=== PATIENT | female | born 1990 | race Caucasian/White ===

== ENCOUNTER 2021-10-22 19:23 | Emergency (ER) | payer OTHER, SELFPAY ==
[2021-10-22 19:35] VITALS: BP 146/88; PULSE 68; RESP 18; TEMP 36.6; O2SAT 97; BMI 24.1
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
== END 2021-10-22 20:15 | disposition home or self-care (01) ==
LOC: ED 20:12
PROVIDERS: Emergency Provider Family Medicine
DX: S16.1XXA Strain of muscle, fascia and tendon at neck level, initial encounter (principal); V43.62XA Car passenger injured in collision with other type car in traffic accident, initial encounter
CPT/HCPCS: 99282; 99283; 99284

== ENCOUNTER 2021-12-13 09:57 | Day surgery (SDC) | payer OTHER, SELFPAY ==
[2021-12-13] VITALS (9 sets, daily range): BP systolic 104–125; BP diastolic 67–91; PULSE 62–86; RESP 16–20; TEMP 36.2–36.8; O2SAT 97–100; BMI 24.2
[2021-12-13 10:39] LABS: Ur HCG Qualitative* Negative (Negative)
[2021-12-13 10:52] LABS: Hemoglobin* 13.7 gm/dL (12.0-16.0)
[2021-12-13] MEDS: LACTATED RINGERS 1000 ML 1,000 ML 100 ML IV (11:00)
[2021-12-13] MEDS: SODIUM CHLORIDE 0.9 % (FLUSH) 10 ML SYRINGE IVF (11:05)
[2021-12-13] MEDS: CEFAZOLIN 2 GM INJ IVP (12:10)
[2021-12-13] MEDS: SILVER NITRATE APPLICATOR 1 EACH STICK..EA. 2 EACH TOPICAL (12:59)
[2021-12-13] MEDS: OXYCODONE 5 MG TABLET PO (13:00)
--- NOTE | 2021-12-13 13:00 | W.ANESCHARGE ---
Anesthesia Charges Start Date/Time Anesthesia Start Date: 12/13/21 Anesthesia Start Time: 12:03 Stop Date/Time Anesthesia Stop Date: 12/13/21 Anesthesia Stop Time: 12:56 Summary Emergency: No
--- NOTE | 2021-12-13 13:05 | W.ANESCHARGE ---
Anesthesia Charges Start Date/Time Anesthesia Start Date: 12/13/21 Anesthesia Start Time: 12:03 Stop Date/Time Anesthesia Stop Date: 12/13/21 Anesthesia Stop Time: 12:56 Summary Emergency: No
[2021-12-13] MEDS: HYDROmorphone 0.5 mg/0.5 ml inj IVP ×2 (13:15→13:54)
[2021-12-13] MEDS: KETOROLAC 15 MG/ML inj IVP (13:40)
--- NOTE | 2021-12-13 13:59 | SUR.PHASEII ---
DR LY HERE TO ASSESS PAIN. SHE LOOKED AT THE SITE, SAID IT LOOKED SHE EXPECTED. APPLIED ICE PACK TO AREA.
--- NOTE | 2021-12-13 15:31 | W.PM.GYNPROC ---
Procedure Note Date Seen: 12/13/21 Operative Note Date Seen: 12/13/21 Date of procedure: 12/13/21 Will [facility] bill your pro fee for this procedure?: Yes Pre-op diagnosis: Recurrent right Bartholin gland cyst Post-op diagnosis: Same Type of Procedure: Right Bartholin gland marsupialization Indications: Recurrent right Bartholin gland cyst, failed Word catheter in the past, multiple I&D in the past Procedure Description: After discussing the risks and benefits of the procedure, the patient signed informed consent.? The patient was brought to the operating room and placed on the operating table in supine position.? Care was taken to pad the patient's pressure points.?? The patient was then given sedation by anesthesia.?Patient was then placed in the dorsal lithotomy position utilizing Yellow Fin type stirrups.? The operative site was then prepped and draped in the usual sterile fashion.? A time-out was then performed. Ancef 2g IV was given. The area of concern was identified as in findings. At the medial aspect of the enlarged gland, at the vestibule, outside of the hymenal ring a 1.5-2cm clem was made with a surgical pen. This area was then infiltrated with local anesthetic 1% lidocaine with epi was injected a total of 9mL utilized. Utilizing a scalpel the skin was opened as well as the cyst wall, this produced immediate drainage of a yellowish serous-sanguinolent fluid. Cultures were obtained. A biopsy of the cyst wall was also obtained utilizing pickups and Metzenbaum scissors. This demonstrated the opening of the cyst cavity. After drainage diminished, utilizing a bulb suction saline was utilized to irrigate the cavity until only clear fluid was seen to come out. Utilizing Vicryl 2-0 multiple interrupted sutures were placed everting the cyst/duct wall to the epithelial surface in a circumferential manner. Silver nitrate was utilized to further secure hemostasis. Hemostasis achieved. Procedure ended. Sponge count complete x2. The patient was then woken and transported to the recovery area in stable condition.The patient tolerated the procedure well. Post op instructions were discussed prior to procedure, as well as return precautions and pain management options. Patient will follow up in clinic in 2 weeks for a post op appointment. Findings: Pelvic: Right Bartholin gland cyst measuring about 4 x 4cm. Otherwise normal external genitalia. Implants: None Anesthesia: MAC Surgeon: Alka Bustillos MD Co-Surgeon: None Estimated blood loss (mL): 10 Specimen: Other Additional Specimen Information: Bartholin gland cyst wall Condition: stable Disposition: same day
== END 2021-12-13 15:22 | disposition home or self-care (01) ==
PROVIDERS: Visit Provider Obstetrics & Gynecology
PROC: (CPT 56740; principal; 2021-12-13 11:00)
DX: N75.0 Cyst of Bartholin's gland (principal)
CPT/HCPCS: 56440; 36415; 81025; 85018; 87186; 87205; 88304; 940; A9270; J0690; J1100; J1170; J1885; J2250; J2405; J2704; J3010; J7120

== ENCOUNTER 2022-07-12 11:51 | Emergency (ER) | payer OTHER, SELFPAY ==
[2022-07-12] VITALS (7 sets, daily range): BP systolic 112–131; BP diastolic 55–80; PULSE 85–102; RESP 18–20; TEMP 36.4–36.5; O2SAT 99–100; BMI 24.0
--- NOTE | 2022-07-12 12:34 | ED.GENADULT ---
HPI - General Adult General Chief complaint: Dizziness/Vertigo Stated complaint: Nausea, dizzy Time Seen by Provider: 07/12/22 11:52 History of Present Illness HPI narrative: 32-year-old woman presenting to the emergency department accompanied by and daughter. Has had numerous episodes of feeling of Mariia Vu since this morning. First episode occurred while exercising. She will be hit by a wave of warmth like a flash, flushing, feeling tingling in her hands feels like she might be about to black out. Kind of like a hot flash must be she says. More intense symptoms lasting about 20 - 30 seconds and spontaneously resolving. She is not actually dizzy. Actually more lightheaded. In particular going up the stairs felt like she might be about pass out. She had been nauseated intermittently but has not vomited. These episodes just continue to happen. Seven or 8 episodes by the time she has arrived here She does endorse a history of depression and anxiety and has had a panic attack in the past but this feels completely different. said he was Googling symptoms and was thinking about temporal lobe epilepsy. There is no personal family history of seizure disorder. Does not have any cardiac disease. Does feel like maybe her heart is beating a little faster in these episodes, maybe fluttering. She has never felt anything like this before. Prior to this was in usual state of health. The young child, 14 months? Is . Does have a history of headaches but again these symptoms are quite atypical today. Related Data Previous Rx's Medication Instructions Recorded levetiracetam 500 mg tablet 500 mg PO BID #60 tabs 07/12/22 Allergies Allergy/AdvReac Type Severity Reaction Status Date / Time No Known Drug Allergies Allergy Verified 07/12/22 12:08 Review of Systems Status of ROS: Reports: 10 or more systems reviewed and unremarkable except as noted in History and below [facility] Medical History Migraine ?G43.909 - Migraine, unspecified, not intractable, without status migrainosus (ICD-10) depression ?F53.0 - depression (ICD-10) Surgical History History of ?Z98.891 - History of uterine scar from previous surgery (ICD-10) Status post primary low transverse section ?Z98.891 - History of uterine scar from previous surgery (ICD-10) Family History Maternal Grandmother Breast cancer Social History Narrative: RN, 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 No alcohol use. No recreational drug use. Smoking Status: Never smoker Do you use any of these nicotine containing products: None How often do you have a drink containing alcohol: monthly or less How many standard drinks containing alcohol do you have on a typical day: 1 or 2 How often do you have six or more drinks on one occasion: Never AUDIT-C Alcohol total score: 1 Non-prescribed substance use: denies use Little interest or pleasure in doing things: nearly every day Feeling down, depressed, or hopeless: nearly every day service: No Exam Narrative: Exam Narrative: Is labored and mildly tachypneic in her breathing. Seems stressed. Easily conversant. Brow is furrowed in apparent discomfort. Nerves 2 through 12 intact. Moving all extremities without difficulty which are well perfused and without edema. Lungs are clear heart with regular rate and rhythm and without murmur or gallop. Abdomen is soft and nontender. Oropharynx is moist. Neck supple without lymphadenopathy. No thyromegaly. She is not tremoring. No there is no nystagmus. Extremity movements are smooth Const: Vital Signs, click to edit/add: Vital Signs - 24 hr 07/12/22 12:00 07/12/22 11:52 07/12/22 12:07 Temperature 97.5 F L Pulse Rate Pulse Rate [Pulse Oximeter] 85 86 95 Respiratory Rate 20 18 18 Blood Pressure [Ri ght Upper Arm] 131/77 112/73 120/55 L Blood Pressure [or thostatic lying Ri ght Arm] Blood Pressure [or thostatic sitting] Blood Pressure [or thostatic standing ] Pulse Oximetry 100 100 100 Oxygen Delivery Me thod Room Air Room Air Room Air 07/12/22 12:23 07/12/22 12:23 07/12/22 12:48 Temperature Pulse Rate Pulse Rate [Pulse Oximeter] 95 Respiratory Rate 18 Blood Pressure [Ri ght Upper Arm] 131/80 Blood Pressure [or thostatic lying Ri ght Arm] 117/73 Blood Pressure [or thostatic sitting] 120/55 L Blood Pressure [or thostatic standing ] 131/80 Pulse Oximetry 100 100 Oxygen Delivery Me thod Room Air 07/12/22 14:06 07/12/22 14:08 Temperature 97.7 F 97.7 F Pulse Rate 102 H Pulse Rate [Pulse Oximeter] Respiratory Rate 20 Blood Pressure [Ri ght Upper Arm] Blood Pressure [or thostatic lying Ri ght Arm] Blood Pressure [or thostatic sitting] Blood Pressure [or thostatic standing ] Pulse Oximetry 99 Oxygen Delivery Me thod Room Air Documenting provider has reviewed patient's vital signs: yes Course Vital Signs Vital signs: Initial Vital Signs Pulse Rate 86 07/12/22 11:52 Pulse Rhythm Regular 07/12/22 11:52 Pulse Strength 3+ Normal 07/12/22 11:52 Respiratory Rate 18 07/12/22 11:52 Respiratory Effort Normal 07/12/22 11:52 Respiratory Depth Normal 07/12/22 11:52 Respiratory Pattern Normal 07/12/22 11:52 Blood Pressure 112/73 07/12/22 11:52 Blood Pressure Mean 86 07/12/22 11:52 Blood Pressure Position Supine 07/12/22 11:52 Pulse Oximetry 100 07/12/22 11:52 Oxygen Delivery Method Room Air 07/12/22 11:52 Vital Signs Pulse Rate 86 07/12/22 11:52 Respiratory Rate 18 07/12/22 11:52 Blood Pressure 112/73 07/12/22 11:52 Pulse Oximetry 100 07/12/22 11:52 Oxygen Delivery Method Room Air 07/12/22 11:52 Temperature 97.7 F 07/12/22 14:08 Pulse Rate 102 H 07/12/22 14:08 Respiratory Rate 20 07/12/22 14:08 Blood Pressure 117/73 07/12/22 12:23 Pulse Oximetry 99 07/12/22 14:08 Oxygen Delivery Method Room Air 07/12/22 14:08 Medical Decision Making MDM Narrative Medical decision making narrative: orthostatics are negative though she does feel lightheaded. In differential includes arrhythmia, anemia though would expect symptoms not to just fluctuate like this, catecholamine surge, other hormone stability, unusual reaction to unspecified infectious process -- viral swab pending, seizure disorder though is fully alert during all of these, other intracerebral anomaly. Pulmonary embolus. Arrhythmia of some sort. Will obtain labs and give IV hydration. Also she 0.5 mg of lorazepam. Reassessment is still uncomfortable appearing and labored in her breathing. She reports that has had 2 or 3 more of these episodes. I do see a PVC on monitor though this seems to be asymptomatic. Essentially normal laboratory evaluation-is reassuring. Normal hemoglobin. Normal cardiac labs. D-dimer is normal. With normal labs I did order a head CT. Head CT thankfully was unremarkable. Reassessment later does show more calm, comfortable. Ultimately 2-1/2 hours without event. Did discuss this case then with Neurology through [facility]. Spoke with Dr. Mike Yu. Is feeling like these might be focal seizures and due to short duration producing less postictal affect. I discussed these findings and suspicions with Ashley. Initiated on Keppra at 500 mg here in the emergency department. Is to continue on this twice daily until seen in follow-up in neurology clinic. We did attempt to make an appointment for her today here but the appointment line was closed. I did contemplate setting up for cardiac cath rn though this does not seem typical for dysrhythmias/arrhythmia in furthermore might be did see here in the emergency department is not associated with reproduction of symptoms. Discussed not driving until further recommendations given at follow-up. Lab Data Lab results reviewed: Yes I reviewed the patient's lab results Labs: Lab Results 07/12/22 07/12/22 07/12/22 Range/Units 12:19 12:56 13:10 WBC 8.52 (4.50-11.00) K/uL RBC 4.68 (4.00-5.20) m/uL Hgb 13.7 (12.0-16.0) gm/dL Hct 41.4 (33.0-51.0) % MCV 89 (80-100) fL MCH 29 (26-34) pg MCHC 33 (32-36) gm/dL RDW Coeff of Juan Alberto 12.0 (11.5-15.5) % Plt Count 243 (140-440) K/uL Neut % (Auto) 81.0 H (42.0-72.0) % Lymph % (Auto) 13.4 L (20-44) % [place] % (Auto) 4.1 (0.0-11.0) % Eos % (Auto) 0.9 (0.0-7.0) % Baso % (Auto) 0.5 (0.0-3.0) % Neut # (Auto) 6.90 (1.7-7.0) K/uL Lymph # (Auto) 1.10 (0.90-2.90) K/uL [place] # (Auto) 0.30 (0.00-0.90) K/UL Eos # (Auto) 0.08 (0.00-0.50) K/uL Baso # (Auto) 0.04 (0.00-0.30) K/uL D-Dimer Quant (PE/DVT) < 0.27 (0.00-0.50) ug/ml VBG pH 7.443 H (7.32-7.43) VBG pCO2 36 L (40-50) mmHG VBG pO2 29.4 (25-47) mmHG VBG HCO3 25 (21-28) mmol/L Sodium 134 L (135-149) mmol/L Potassium 4.1 (3.6-5.1) mmol/L Chloride 105 (96-114) mmol/L Carbon Dioxide 23 (20-32) mmol/L BUN 12 (5-24) mg/dL Creatinine 0.4 L (0.5-1.5) mg/dL Estimated Creat Clear 177.59 Estimated GFR 136 ml/min Glucose 104 (60-115) mg/dL Calcium 8.8 (8.4-10.6) mg/dL Magnesium 1.8 (1.5-2.6) mg/dL Total Bilirubin 0.4 (0.1-1.5) mg/dL Direct Bilirubin 0.1 (0.0-0.5) mg/dL AST 19 (12-35) U/L ALT 16 (4-35) U/L Alkaline Phosphatase 78 (40-150) U/L Troponin I < 0.01 L (0.01-0.04) ng/mL C-Reactive Protein 0.5 (0.5-1.0) mg/dL NT-Pro-B Natriuret Pep 23 pg/mL Total Protein 7.0 (6.0-8.3) g/dL Albumin 4.5 (3.3-5.0) g/dL TSH 2.260 (0.270-4.20) uIU/mL Urine Color (Yellow) Urine Appearance (Clear) Urine pH (5.0-8.5) Ur Specific [place] (1.000-1.030) Urine Protein (Negative) Urine Glucose (UA) (Negative) Urine Ketones (Negative) Urine Blood (Negative) Urine Nitrite (Negative) Urine Bilirubin (Negative) Urine Urobilinogen (0.2-1.0) Ur Leukocyte Esterase (Negative) Urine RBC (0-2) Urine WBC (0-5) Ur Squamous Epith Cells (None-Few) Urine Bacteria (None) Ethyl Alcohol < 0.01 L (0.01-0.03) % SARS-CoV-2 (PCR) Negative SARS-CoV-2 (Negative) Influenza Type A (PCR) Negative PCR FLU A (Negative) Influenza Type B (PCR) Negative PCR FLU B (Negative) POC Troponin I 0.00 L (0.01-0.04) ng/ml 07/12/22 Range/Units 13:34 WBC (4.50-11.00) K/uL RBC (4.00-5.20) m/uL Hgb (12.0-16.0) gm/dL Hct (33.0-51.0) % MCV (80-100) fL MCH (26-34) pg MCHC (32-36) gm/dL RDW Coeff of Juan Alberto (11.5-15.5) % Plt Count (140-440) K/uL Neut % (Auto) (42.0-72.0) % Lymph % (Auto) (20-44) % [place] % (Auto) (0.0-11.0) % Eos % (Auto) (0.0-7.0) % Baso % (Auto) (0.0-3.0) % Neut # (Auto) (1.7-7.0) K/uL Lymph # (Auto) (0.90-2.90) K/uL [place] # (Auto) (0.00-0.90) K/UL Eos # (Auto) (0.00-0.50) K/uL Baso # (Auto) (0.00-0.30) K/uL D-Dimer Quant (PE/DVT) (0.00-0.50) ug/ml VBG pH (7.32-7.43) VBG pCO2 (40-50) mmHG VBG pO2 (25-47) mmHG VBG HCO3 (21-28) mmol/L Sodium (135-149) mmol/L Potassium (3.6-5.1) mmol/L Chloride (96-114) mmol/L Carbon Dioxide (20-32) mmol/L BUN (5-24) mg/dL Creatinine (0.5-1.5) mg/dL Estimated Creat Clear Estimated GFR ml/min Glucose (60-115) mg/dL Calcium (8.4-10.6) mg/dL Magnesium (1.5-2.6) mg/dL Total Bilirubin (0.1-1.5) mg/dL Direct Bilirubin (0.0-0.5) mg/dL AST (12-35) U/L ALT (4-35) U/L Alkaline Phosphatase (40-150) U/L Troponin I (0.01-0.04) ng/mL C-Reactive Protein (0.5-1.0) mg/dL NT-Pro-B Natriuret Pep pg/mL Total Protein (6.0-8.3) g/dL Albumin (3.3-5.0) g/dL TSH (0.270-4.20) uIU/mL Urine Color Yellow (Yellow) Urine Appearance Clear (Clear) Urine pH 7.0 (5.0-8.5) Ur Specific [place] 1.015 (1.000-1.030) Urine Protein Negative (Negative) Urine Glucose (UA) Negative (Negative) Urine Ketones Negative (Negative) Urine Blood Negative (Negative) Urine Nitrite Negative (Negative) Urine Bilirubin Negative (Negative) Urine Urobilinogen 0.2 (0.2-1.0) Ur Leukocyte Esterase Negative (Negative) Urine RBC 0-2 (0-2) Urine WBC 0-2 (0-5) Ur Squamous Epith Cells Few (None-Few) Urine Bacteria None (None) Ethyl Alcohol (0.01-0.03) % SARS-CoV-2 (PCR) (Negative) Influenza Type A (PCR) (Negative) Influenza Type B (PCR) (Negative) POC Troponin I (0.01-0.04) ng/ml ECG Data Attestation: I personally reviewed and interpreted this ECG as follows: (Normal sinus rhythm. Rate of 80. No ischemic changes or evidence of arrhythmia otherwise. No delta wave.) Discharge Plan Discharge Clinical Impression: Focal seizures, Pre-syncope Patient Disposition: Home w/ Parent or Adult Condition: Improved Additional Instructions: Hydrate. Rest today and tomorrow, exerting yourself less than usual. After that I would say can return to baseline. Today I spoke with Dr. Mike Yu from [facility]. I am sorry we were unable to schedule an appointment for you today. The phone number I have for them is [phone]. I would reference this ER visit and Dr. Yu in your phone call. Would hope that you can get an appointment as recommended within 2 weeks. Return for intensifying, worsening symptoms. Activity Level: No Restrictions Discharge Diet: Regular Prescriptions: New levetiracetam 500 mg tablet 500 mg PO BID Qty: 60 2RF Follow Up/Referrals: Cammy Andrews MD [Staff Physician] - Stand Alone Forms: [facility] Info Instructions
[2022-07-12] MEDS: 0.9 % SODIUM CHLORIDE 1000 ml 1,000 ML IV (13:05)
[2022-07-12 13:06] LABS: Basophils Absolute Auto 0.04 K/uL (0.00-0.30); Basophils Percent Auto 0.5 % (0.0-3.0); Eosinophils Absolute Auto 0.08 K/uL (0.00-0.50); Eosinophils Percent Auto 0.9 % (0.0-7.0); Hematocrit 41.4 % (33.0-51.0); Hemoglobin* 13.7 gm/dL (12.0-16.0); Immature Granulocytes Abs Auto 0.01 K/uL (0.00-0.30); Immature Granulocytes Pct Auto 0.1 %; Lymphocytes Percent Auto 13.4 % (20-44); Mean Corpuscular HGB Conc 33 gm/dL (32-36); Mean Corpuscular Hemoglobin 29 pg (26-34); Mean Corpuscular Volume 89 fL (80-100); Monocytes Percent Auto 4.1 % (0.0-11.0); Platelet Count* 243 K/uL (140-440); Red Blood Count 4.68 m/uL (4.00-5.20); White Blood Count* 8.52 K/uL (4.50-11.00)
[2022-07-12] MEDS: LORazepam 2 MG/ML inj 0.5 MG IVP (13:10)
[2022-07-12 13:14] LABS: HCO3 VBG 25 mmol/L (21-28); PCO2 VBG 36 mmHG (40-50); PO2 VBG 29.4 mmHG (25-47); pH VBG 7.443 (7.32-7.43)
[2022-07-12 13:33] LABS: Slide Review Reflex No
[2022-07-12 13:36] LABS: Chloride* 105 mmol/L (96-114); Potassium* 4.1 mmol/L (3.6-5.1); Sodium* 134 mmol/L (135-149)
[2022-07-12 13:37] LABS: Albumin* 4.5 g/dL (3.3-5.0)
[2022-07-12 13:38] LABS: Creatinine* 0.4 mg/dL (0.5-1.5); Est. Creatinine Clearance* 177.59; Estimated Glomerular Filt Rate 136 ml/min
[2022-07-12 13:39] LABS: Carbon Dioxide* 23 mmol/L (20-32)
[2022-07-12 13:40] LABS: Alanine Aminotransferase* 16 U/L (4-35); Alkaline Phosphatase* 78 U/L (40-150); Aspartate Amino Transferase* 19 U/L (12-35); Bilirubin Direct* 0.1 mg/dL (0.0-0.5); Bilirubin Total* 0.4 mg/dL (0.1-1.5); Blood Urea Nitrogen* 12 mg/dL (5-24); Calcium* 8.8 mg/dL (8.4-10.6); Glucose* 104 mg/dL (60-115); Magnesium* 1.8 mg/dL (1.5-2.6)
[2022-07-12 13:40] LABS: Appearance Urine Clear (Clear); Bilirubin Urine Negative (Negative); Blood Urine Negative (Negative); Color Urine Yellow (Yellow); Glucose Urine Negative (Negative); Ketones Urine Negative (Negative); Leukocyte Esterase Urine Negative (Negative); Nitrite Urine Negative (Negative); Protein Urine Negative (Negative); Specific Gravity Urine 1.015 (1.000-1.030); Urobilinogen Urine 0.2 (0.2-1.0)
[2022-07-12 13:42] LABS: C Reactive Protein* 0.5 mg/dL (0.5-1.0)
[2022-07-12 13:43] LABS: PCR FLU A Negative PCR FLU A (Negative); PCR FLU B Negative PCR FLU B (Negative)
[2022-07-12 13:44] LABS: Ethanol* < 0.01 % (0.01-0.03)
[2022-07-12 13:50] LABS: D Dimer Quantitative* < 0.27 ug/ml (0.00-0.50)
[2022-07-12 13:50] LABS: NT Pro B Type NatriureticPept* 23 pg/mL
[2022-07-12 13:53] LABS: RBC Urine 0-2 (0-2); Squamous Epithelial Cell Urine Few (None-Few); WBC Urine 0-2 (0-5)
[2022-07-12 14:02] LABS: Troponin I* < 0.01 ng/mL (0.01-0.04)
[2022-07-12 14:17] LABS: SARS PCR* Negative SARS-CoV-2 (Negative)
--- NOTE | 2022-07-12 14:23 | CRLHL7_ITS ---
For Patients: As a result of the Century Cures Act, medical imaging exams and procedure reports are released immediately into your electronic medical record. You may view this report before your referring provider. If you have questions, please contact your health care provider. INDICATION: Lightheaded. TECHNIQUE: Noncontrast CT images acquired through the brain. COMPARISON: None. FINDINGS: The ventricles and sulci are within normal limits for patient age. No mass effect or midline shift. The aclantara-white differentiation is maintained. No acute intracranial hemorrhage or pathologic extra-axial fluid collection. Minimal atherosclerotic calcifications in the carotid siphons. The globes are symmetric. The calvarium is intact. The visualized paranasal sinuses and mastoid air cells are clear. IMPRESSION: No acute intracranial hemorrhage or mass effect. Please note that all CT scans at this facility use dose modulation, iterative reconstruction, and/or weight-based dosing when appropriate to reduce radiation dose to as low as reasonably achievable. Dictated by Chaitanya Olvera MD @ 07/12/2022 2:59:18 PM (Electronically Signed)
[2022-07-12] MEDS: levETIRAcetam 500 MG TABLET PO (16:59)
== END 2022-07-12 17:17 | disposition home or self-care (01) ==
PROVIDERS: Emergency Provider Family Medicine
DX: R56.9 Unspecified convulsions (principal); R42 Dizziness and giddiness
CPT/HCPCS: 36415; 70450; 80048; 80076; 81001; 82077; 82803; 83735; 83880; 84443; 84484; 85025; 85379; 86140; 87631; 94761; 96374; 99284; A9270; J2060; J7030

== ENCOUNTER 2023-03-31 13:56 | Outpatient (CLI) | payer OTHER, SELFPAY | END 2023-03-31 13:57 | disposition home or self-care (01) | LOC: NFLDREF 13:57 | PROVIDERS: PCP Family Medicine; Visit Provider Obstetrics & Gynecology | DX: Z32.01 Encounter for pregnancy test, result positive (principal) | CPT/HCPCS: 84702 ==

== ENCOUNTER 2023-04-04 10:59 | Outpatient (CLI) | payer OTHER, SELFPAY ==
--- NOTE | 2023-04-04 11:15 | CRLHL7_ITS ---
For Patients: As a result of the Century Cures Act, medical imaging exams and procedure reports are released immediately into your electronic medical record. You may view this report before your referring provider. If you have questions, please contact your health care provider. INDICATION: 32 year-old female. First trimester scan, establish dates. COMPARISON: None. TECHNIQUE: Real-time alcantara-scale imaging of the pelvis was performed. FINDINGS: Sonographic imaging demonstrates a single living intrauterine gestation. The embryo demonstrates a regular cardiac rate measuring 157 beats per minute. The embryo`s crown-rump length measurement of 1.47 cm corresponds to a gestational age of 7 weeks 6 days with a sonographic due date of November 15, 2023.. There is a normal-appearing yolk sac measuring 3.3 mm. There are no gross abnormalities noted within the embryo at this early state of development. The placenta has not yet developed. The gestational sac has a normal appearance. Curvilinear perigestational/subchorionic hemorrhage inferior to the gestational sac measuring 11 x 10 x 7 mm. The amount of fluid within the sac appears appropriate for gestational age. The cervix is closed. The myometrium appears normal. The ovaries are of normal size. The right ovary measures 3.2 x 1.8 x 2.7 cm. The left ovary measures 4.6 x 2.3 x 3.2 cm. The left ovary contains a corpus luteum cyst of measuring 2.2 x 2.2 x 2.8 cm. Minimal free fluid in the cul-de-sac likely physiologic. There are no suspicious fluid collections noted in the cul-de-sac. IMPRESSION: Normal first trimester OB ultrasound exam. Gestational age calculated at 7 weeks 6 days with a sonographic due date of November 15, 2023. Small amount of subchorionic hemorrhage. Dictated by Isaac Tong MD @ 04/07/2023 8:19:42 AM (Electronically Signed)
== END 2023-04-04 11:00 | disposition home or self-care (01) ==
LOC: US 11:01
PROVIDERS: PCP Family Medicine; Visit Provider Registered Nurse
DX: Z34.91 Encounter for supervision of normal pregnancy, unspecified, first trimester (principal); O20.9 Hemorrhage in early pregnancy, unspecified; Z3A.01 Less than 8 weeks gestation of pregnancy
CPT/HCPCS: 76817

== ENCOUNTER 2023-04-04 12:16 | Outpatient (CLI) | payer OTHER, SELFPAY ==
[2023-04-04 18:53] LABS: Chlamydia DNA Amplified* NOT DETECTED (No Detected); GC DNA Amplified* NOT DETECTED (No Detected)
== END 2023-04-04 12:17 | disposition home or self-care (01) ==
PROVIDERS: PCP Family Medicine; Visit Provider Registered Nurse
DX: Z34.91 Encounter for supervision of normal pregnancy, unspecified, first trimester (principal); Z3A.08 8 weeks gestation of pregnancy
CPT/HCPCS: 86592; 86703; 86704; 86706; 86762; 86787; 86803; 86850; 86900; 86901; 87086; 87340; 87491; 87591

== ENCOUNTER 2023-04-09 16:46 | Outpatient (REF) | payer OTHER, SELFPAY ==
[2023-04-12 14:08] LABS: Keppra (Levetiracetam) 10 ug/mL (10-40)
== END 2023-04-09 16:47 | disposition home or self-care (01) ==
LOC: NPINS 16:46
PROVIDERS: PCP Family Medicine; Visit Provider Psychiatry & Neurology Neurology
DX: R56.9 Unspecified convulsions (principal)
CPT/HCPCS: 80177

== ENCOUNTER 2023-06-27 07:59 | Outpatient (CLI) | payer OTHER, SELFPAY ==
--- NOTE | 2023-06-27 08:15 | US_ITS ---
Patient: ELMA PAGE Facility:?[facility] Patient ID:?[id number] Site Patient ID:?[id number]. Site :?1990 Study:?US-OB Pelvis OB > 14wks-06/27/2023 9:46:03 AM Ordering Physician:?Alka Bustillos Final Report: HISTORY: anatomic survey. COMPARISON: Early OB ultrasound from 04/04/2023 TECHNIQUE: Ultrasound examination of the is performed with transabdominal technique. FINDINGS: A single intrauterine gestation is seen in variable presentation with regular cardiac activity at 149 beats per minute. The placenta is anterior and is free of the cervical os. The placental grade is 0 and the amniotic fluid volume is normal. Single deepest vertical pocket: Normal at 5.2 cm. The cervix is normal in length at 4.0 centimeters. BPD: 4.8 cm 20 weeks 3 days HC: 18.1 cm 20 weeks 4 days AC: 14.6 cm 20 weeks 0 days FL: 3.2 cm 19 weeks 6 days The estimated age by ultrasound is 20 weeks 1 day, with an estimated date of delivery of 11/13/2023. This correlates well with the clinical age of 19 weeks 3 days and the previous ultrasound. The ultrasound ratios are normal. The estimated weight is 320 grams which is at the 77th percentile based on the clinical dates. The anatomic survey demonstrates normal appearing intracranial structures with a normal septum pellucidum and normal cerebellum. The nuchal thickness is normal at 3 mm, and the lateral ventricle is normal in diameter at 5 mm. The upper lip, 4 chamber heart, left and right ventricular outflow tracts, diaphragm, stomach, cord insertion site, 3-vessel cord, kidneys, bladder and spine are normal in appearance. IMPRESSION: 1. Single intrauterine gestation in variable presentation with regular cardiac activity. 2. Estimated gestational age is 19 weeks 3 days. 3. Estimated weight is 320 grams which is at the 77th percentile based on the clinical dates. 4. There has been appropriate interval growth. Dictated by Nic Mckeon MD @ 06/29/2023 11:09:41 AM Signed by:?Nic Mckeon MD @06/29/2023 11:09:41 AM (Electronic Signature)
== END 2023-06-27 08:00 | disposition home or self-care (01) ==
LOC: US 07:59
PROVIDERS: PCP Family Medicine; Visit Provider Obstetrics & Gynecology
DX: Z34.92 Encounter for supervision of normal pregnancy, unspecified, second trimester (principal); Z3A.20 20 weeks gestation of pregnancy
CPT/HCPCS: 76805

== ENCOUNTER 2023-06-27 09:50 | Outpatient (CLI) | payer OTHER, SELFPAY | END 2023-06-27 09:51 | disposition home or self-care (01) | LOC: NFLDREF 09:51 | PROVIDERS: PCP Family Medicine; Visit Provider Obstetrics & Gynecology | DX: G40.209 Localization-related (focal) (partial) symptomatic epilepsy and epileptic syndromes with complex partial seizures, not intractable, without status epilepticus (principal); Z79.899 Other long term (current) drug therapy | CPT/HCPCS: 80177 ==

== ENCOUNTER 2023-08-25 09:10 | Outpatient (CLI) | payer OTHER, SELFPAY ==
--- OUTSIDE RECORDS SUMMARY | 2023-09-11 11:06 | XMS_ITS | Clinical Summary ---
Author Organization [facility] Address [address] [place] [address] Care Team Providers Care Tank Farm Gauger Name Role Phone Gertrude Kang M.D. Primary Care Provider [phone] Source Comments Patient records contain information from all sites at [facility]. For routine questions regarding patient records, call [phone] during business hours, M-F 8:00 AM - 5:00 PM Central Time. Record requests for emergency care only can be directed to [phone] at any time.[facility] Allergies No known active allergies Medications Medication Sig Dispensed Refills Start Date End Date Status ncevmxq-Fj-efie-FA 27 mg iron- 1 mg tablet Take 1 tablet by mouth daily. Active levETIRAcetam (KEPPRA) 500 mg tablet Take 500 mg by mouth 2 (two) times a day. Active sertraline (ZOLOFT) 100 mg tablet Take 150 mg by mouth daily. Active folic acid 1 mg tablet Take 4 mg by mouth daily. Active Active Problems Problem Noted Date Diagnosed Date Seizure Disorder 05/13/2023 Maternal Care For Low Transv erse Scar From Previous Delivery 05/13/2023 Depression/Kourtney/Bipolar NOS 05/11/2010 Overview: UNSPECIFIED EPISODIC MOOD DISORDER Estimated Date of Delivery Comme nts Yes 11/18/2023 Based on last me nstrual period of 02/11/2023 Immunizations Name Administration Dates Next Due 4vHPV (discontinued) 02/03/2014 HepA Pediatric/Adolescent 11/11/2008 IPV 11/11/2008,10/30/2007 Influenza, Unspecified 02/03/2014 MCV4 (Menactra)(Discontinued) 11/11/2008 MMR 10/30/2007,09/01/2006 Td (Adult), adsorbed 09/01/2006 Tdap 03/20/2021 influenza vaccine quad (FLUZ ONE/FLUARIX) (6 months and older)(PF) 03/20/2021,01/19/2020,01/20/2019 Family History Medical History Relation Name Comments Anxiety disorder Brother 1 Depression Brother 1 Anxiety disorder Brother 2 Depression Brother 2 Depression Father No Known Problems Mother Heart disease Paternal Grandfather Anxiety disorder Sister 1 Depression Sister 1 Anxiety disorder Sister 2 Relation Name Status Comments Brother 1 Alive Brother 2 Alive Brother 3 Alive Brother 4 Alive Daughter Alive Father Alive Maternal Grandfather Maternal Grandmother Alive Mother Alive Paternal Grandfather Paternal Grandmother Sister 1 Alive Sister 2 Alive Sister 3 Alive Social History Tobacco Use Types Packs/Day Years Used Date Smoking Tobacco: Never Smokeless Tobacco: Never Tobacco Cessation:Counseling Given: Not Answered Alcohol Use Standard Drinks/Week Comments Not Currently 0 (1 standard drink = 0.6 oz pur e alcohol) 2 a week [facility] [employer] Answer Date Recorded In the past 12 months has th e [employer], gas, oil, or water [employer] threatened to shut off services in your home? No 05/09/2023 Exercise Vital Sign Answer Date Recorde d On average, how many days pe r week do you engage in moderate to strenuous exercise (like a brisk walk)? 3 days 05/09/2023 On average, how many minutes do you engage in exercise at this level? 30 min 05/09/2023 Hunger Vital Sign Answer Date Recorded Within the past 12 months, y ou worried that your food would run out before you got the money to buy more. Never true 05/09/19 24 Within the past 12 months, t he food you bought just didn't last and you didn't have money to get more. Never true 05/09/2023 PRAPARE - Transportation Answer Date Re corded In the past 12 months, has l ack of transportation kept you from medical appointments or from getting medications? No 04/24 In the past 12 months, has l ack of transportation kept you from meetings, work, or from getting things needed for daily living? No 05/09/2023 Nutrition Answer Date Recorded Nutrition: EVOO Fat Source Unknown 05/09 On average, how many serving s of fruits and vegetables do you eat per day (serving size is equal to 1 cup or approximately the size of a tennis ball)? 0-2 05/09/2023 Dental Answer Date Recorded Dental: Regular Dentist Yes 05/09/19 Employment Answer Date Recorded Employment status Unemployed/not in e paid workforce and NOT seeking employment 05/09/2023 Housing Stability Answer Date Recorded What is your living situation today? I have a [facility] place to live 05/09/2023 Education Answer Date Recorded What is the highest level of school you have completed or the highest degree you have received? Bachelor's degree (e.g., BA, AB, BS) 04/11/2023 Estimated Date of Delivery Comme nts Yes 11/18/2023 Based on last me nstrual period of 02/11/2023 Sex and Gender Information Value Date Recorded Sex Assigned at Female 05/09/2023 8:51 PM PSYCHOLOGIST INDUSTRIAL ORGANIZATIONAL Gender Identity Female 05/09/2023 8:51 PM PSYCHOLOGIST INDUSTRIAL ORGANIZATIONAL Sexual Orientation Straight 05/09/2023 8: 51 PM PSYCHOLOGIST INDUSTRIAL ORGANIZATIONAL Last Filed Vital Signs Vital Sign Reading Time Taken Comments Blood Pressure 113/65 05/12/2023 2:23 PM PSYCHOLOGIST INDUSTRIAL ORGANIZATIONAL Pulse 75 05/12/2023 2:23 PM PSYCHOLOGIST INDUSTRIAL ORGANIZATIONAL Temperature 36.7 ??C (98.1 ??F) 05/12/2023 2:23 PM CS T Respiratory Rate 18 10/22/2016 1:46 PM CDT Oxygen Saturation 98% 05/12/2023 2:23 PM PSYCHOLOGIST INDUSTRIAL ORGANIZATIONAL Inhaled Oxygen Concentration - - Weight 65.6 kg (144 lb 10 oz) 05/12/2023 2:23 PM PSYCHOLOGIST INDUSTRIAL ORGANIZATIONAL Height 164 cm (5' 4.57) 11/21/2016 9:20 AM CDT Body Mass Index 24.39 11/21/2016 9:20 AM CDT Plan of Treatment Health Maintenance Due Date Last Done Comments HIV Screening 1990 Hepatitis C Screening 1990 Hepatitis B Vaccines (1 of 3 - 19+ 3-dose series) 06/21/2011 HPV Vaccines (2 - 3-dose series) 03/03/2014 02/03/2014 Cervical Cancer Screening 10/22/2019 10/21/2016, COVID-19 Vaccine (2022-24 season) 2022 Depression Screening (Annual PHQ-2) 03/24/2023 DTaP,Tdap,and Td Vaccines (3 - Td or Tdap) 03/20/2031 03/20/2021, 09/01/2006 Influenza Vaccine Completed 04/04/2023, , 03/20/2021, Additional history exists Pneumococcal vaccine (0-64 years) Aged Out No longer eligible based on patient's age to complete this topic RSV vaccine - (32-36 weeks) or 60+ years (No Doses Required) Completed Procedures Procedure Name Priority Date/Time Associated Diagnosis Comments PATHOLOGY FERN GATHERER CYTOLOGY Routine 10/21/2016 12:00 AM CDT from Last 3 Months or Most Recently Relevant to Health Maintenance Results * Pathology FERN GATHERER Cytology (10/21/2016 12:00 AM CDT) 10/21/2016 Narrative [facility] - 10/25/2016 11:59 AM CDT [facility] [place] [address] [facility] [address] [place] [address] ??[phone] Patient Name: ELMA TAYLOR Collected: 10/21/2016 Address: City/State/Zip: [address] [place] [address] ??[id number] Received: Reported: 10/22/2016 10/25/2016 Soc. Sec. #: ?/Age/Sex 1990 (Age: 26) ??F Physician(s): JAVON KANG MD Copy To: ? [facility] ??[id number] [facility] ??[id number] CYTOPATHOLOGY FERN GATHERER REPORT FINAL CYTOLOGIC DIAGNOSIS Pap Smear VCE - ThinPrep: NEGATIVE FOR INTRAEPITHELIAL LESION OR MALIGNANCY REACTIVE/REPARATIVE CHANGES. ENDOCERVICAL CELLS/COMPONENT PRESENT. SATISFACTORY SPECIMEN FOR EVALUATION. ??This specimen required a physician interpretation under CLIA 1987 ?? Electronically Signed Out By [facility]/10/25/2016 RENUKA CHOUDHARY M.D. JESSICA CARDENAS([facility]) The Pap test is a screening procedure and, as such, is subject to both false positive and false negative results as evidenced by published data. ??It is not a diagnostic test and results should be interpreted in the context of the patient's history and other clinical findings. ??Obtaining periodic Pap tests may help to minimize the consequences of any false negatives that may occur. SPECIMEN(S) RECEIVED: Pap Smear VCE - ThinPrep CLINICAL HISTORY: Date of Last Menstrual Period: 10/18/2016 Hormonal History: No hormonal therapy Other Clinical Conditions: CT/NG TESTING ORDERED Gertrude Kang M.D. LAB PAP COPATH OR DERABLES [facility] LAB from Last 3 Months or Most Recently Relevant to Health Maintenance Care Teams Tank Farm Gauger Relationship Specialty Start Date End Date Gertrude Kang M.D. [address] [place] [phone] PCP - General 09/20/16
--- OUTSIDE RECORDS SUMMARY | 2023-09-11 11:06 | XMS_ITS | Referral Summary ---
Author Organization [facility] Address [address] [place] [address] Care Team Providers Care Heat Pump Installer Name Role Phone Gertrude Kang M.D. Primary Care Provider [phone] Source Comments Patient records contain information from all sites at [facility]. For routine questions regarding patient records, call [phone] during business hours, M-F 8:00 AM - 5:00 PM Central Time. Record requests for emergency care only can be directed to [phone] at any time.[facility] Allergies No known active allergies Medications Medication Sig Dispensed Refills Start Date End Date Status qoncdne-Tl-kloz-FA 27 mg iron- 1 mg tablet Take [...] (FLUZ ONE/FLUARIX) (6 months and older)(PF) 03/20/2021,01/19/2020,01/20/2019 Social History Tobacco Use Types Packs/Day Years Used Date Smoking Tobacco: Never Smokeless Tobacco: Never Tobacco Cessation:Counseling Given: Not Answered Alcohol Use Standard Drinks/Week Comments Not Currently 0 (1 standard drink = 0.6 oz pur e alcohol) 2 a week [facility] [employer] Answer Date Recorded In the past 12 months has th e [employer], gas, oil, or water [employer] threatened to shut off services in your [...] Date Recorded Dental: Regular Dentist Yes 05/09/19 24 Employment Answer Date Recorded Employment status Unemployed/not in th e paid workforce and NOT seeking employment 05/09/2023 Housing Stability Answer Date Recorded What is your living situation today? I have a [facility] place to live 05/09/2023 Education Answer Date Recorded What is the highest level of school you have completed or the highest degree you have received? Bachelor's degree (e.g., BA, AB, BS) 04/11/2023 Estimated Date of Delivery Comme nts Yes 11/18/2023 Based on last me nstrual period of 02/11/2023 Sex and Gender Information Value Date Recorded Sex Assigned at Female 05/09/2023 8:51 PM VOCATIONAL AIDE Gender Identity Female 05/09/2023 8:51 PM VOCATIONAL AIDE Sexual Orientation Straight 05/09/2023 8: 51 PM VOCATIONAL AIDE Last Filed Vital Signs Vital Sign Reading Time Taken Comments Blood Pressure 113/65 05/12/2023 2:23 PM VOCATIONAL AIDE Pulse 75 05/12/2023 2:23 PM VOCATIONAL AIDE Temperature 36.7 ??C (98.1 ??F) 05/12/2023 2:23 PM CS T Respiratory Rate 18 10/22/2016 1:46 PM CDT Oxygen Saturation 98% 05/12/2023 2:23 PM VOCATIONAL AIDE Inhaled Oxygen Concentration - - Weight 65.6 kg (144 lb 10 oz) 05/12/2023 2:23 PM VOCATIONAL AIDE Height 164 cm (5' 4.57) 11/21/2016 9:20 AM CDT Body Mass Index 24.39 11/21/2016 9:20 AM CDT Plan of Treatment Not on file Procedures Procedure Name Priority Date/Time Associated Diagnosis Comments PATHOLOGY BACK HOE MACHINE OPERATOR CYTOLOGY Routine 10/21/2016 12:00 AM CDT from Last 3 Months or Most Recently Relevant to Health Maintenance Results * Pathology BACK HOE MACHINE OPERATOR Cytology (10/21/2016 12:00 AM CDT) 10/21/2016 Narrative [facility] - 10/25/2016 11:[address] [facility] in [address] [place], [place] ??[phone] Patient Name: ELMA TAYLORSE Collected: 10/21/2016 Address: City/State/Zip: [address] [place], [place] ??[id number] Received: Reported: 10/22/2016 10/25/2016 Soc. Sec. #: ?/Age/Sex 1990 (Age: 26) ??F Physician(s): JAVON KANG MD Copy To: ? [facility] ??[id number] [address] [facility], ??[place] ??[address] CYTOPATHOLOGY BACK HOE MACHINE OPERATOR REPORT FINAL CYTOLOGIC DIAGNOSIS Pap Smear VCE - ThinPrep: NEGATIVE FOR INTRAEPITHELIAL LESION OR MALIGNANCY REACTIVE/REPARATIVE CHANGES. ENDOCERVICAL CELLS/COMPONENT PRESENT. SATISFACTORY SPECIMEN FOR EVALUATION. ??This specimen required a physician interpretation under CLIA 1987 ?? Electronically Signed Out By [facility]/10/25/2016 RENUKA CHOUDHARY M.D. JESSICA CARDENAS([facility]) The Pap test is a screening procedure [...] Kang M.D. LAB PAP COPATH OR DERABLES Performing Organization Address City/State/[facility] Co de Phone Number [facility] from Last 3 Months or Most Recently Relevant to Health Maintenance Care Teams Heat Pump Installer Relationship Specialty Start Date End Date Gertrude Kang M.D. [address] [place] [phone] PCP - General 09/20/16
--- OUTSIDE RECORDS SUMMARY | 2023-09-11 11:06 | XMS_ITS ---
Author Organization [facility] Address [address] [place] [address] Care Team Providers Care Drawing Box Tender Name Role Phone Unavailable Unavailable Unavailable Surgery Details Not on file Complications Check Surgery Details section. Procedure Estimated Blood Loss Check Surgery Details section. Procedure Findings Check Surgery Details section. Procedure Specimens Taken Check Surgery Details section.
== END 2023-08-25 09:11 | disposition home or self-care (01) ==
LOC: NFLDREF 09-11 11:05
PROVIDERS: PCP Family Medicine; Referring Provider Family Medicine; Visit Provider Advanced Practice Midwife
DX: Z34.83 Encounter for supervision of other normal pregnancy, third trimester (principal)
CPT/HCPCS: 86592

== ENCOUNTER 2023-08-25 09:11 | Outpatient (CLI) | payer OTHER, SELFPAY ==
--- NOTE | 2023-08-25 09:15 | CRLHL7_ITS ---
For Patients: As a result of the Century Cures Act, medical imaging exams and procedure reports are released immediately into your electronic medical record. You may view this report before your referring provider. If you have questions, please contact your health care provider. INDICATION: Third trimester scan, evaluate growth. COMPARISON: 06/27/2023 TECHNIQUE: Real time alcantara scale imaging of the fetus was performed. FINDINGS: Sonographic imaging demonstrates a single living intrauterine gestation. Fetus demonstrates a regular cardiac rate of 149 beats per minute. Fetus has a vertex position. The placenta lies anteriorly without evidence of placenta previa. Amniotic fluid volume appears normal and there is a single deepest vertical pocket: 6.8 cm. The estimated weight is 1324gm which lies at the 82nd %. On the prior OB ultrasound exam dated 06/27/2023 the estimated weight was at the 77th%. BPD and HC greater than 97th percentile. AC 79th percentile. FL 34th percentile. The HC/AC ratio measures 1.16 range (0.98-1.19). IMPRESSION: Sonographic gestational age 29 weeks 6 days and a sonographic due date of 11/04/2023. Sonographic age 2 weeks ahead of the clinical age. Estimated weight 82nd percentile. Abdominal circumference 79th percentile. Dictated by Erwin Lamas MD @ 08/25/2023 10:16:26 AM (Electronically Signed)
== END 2023-08-25 09:12 | disposition home or self-care (01) ==
PROVIDERS: PCP Family Medicine; Visit Provider Obstetrics & Gynecology
DX: Z34.93 Encounter for supervision of normal pregnancy, unspecified, third trimester (principal); Z3A.29 29 weeks gestation of pregnancy
CPT/HCPCS: 76816

== ENCOUNTER 2023-10-21 11:56 | Outpatient (CLI) | payer OTHER, SELFPAY ==
--- OUTSIDE RECORDS SUMMARY | 2023-10-21 11:59 | XMS_ITS | Clinical Summary ---
Author Organization [facility] Address [address] [place] [address] Care Team Providers Care General Farm Hand Name Role Phone Gertrude Kang M.D. Primary Care Provider [phone] Source Comments Patient records contain information from all sites at [facility]. For routine questions regarding patient records, call [phone] during business hours, M-F 8:00 AM - 5:00 PM Central Time. Record requests for emergency care only can be directed to [phone] at any time.[facility] Allergies No known active allergies Medications Medication Sig Dispensed Refills Start Date End Date Status czmltoi-Xt-vrso-FA 27 mg iron- 1 mg tablet Take [...] From Previous Delivery 05/13/2023 Depression/Kourtney/Bipolar NOS 05/11/2010 Overview (08/13/2016): UNSPECIFIED EPISODIC MOOD DISORDER Estimated Date of [...] oz pur e alcohol) 2 a week [facility] [employer] Answer Date Recorded In the past 12 months has e [employer], gas, oil, or water [employer] threatened to shut off services in your [...] Answer Date Recorded Employment status Unemployed/not in [employer] paid workforce and NOT seeking employment 05/09/2023 Housing Stability Answer Date Recorded What is your living situation today? I have a [facility] place to live 05/09/2023 Education Answer Date Recorded What is the highest level of school you have completed or the highest degree you have received? Bachelor's degree (e.g., BA, AB, BS) 04/11/2023 Estimated Date of Delivery Comme nts Yes 11/18/2023 Based on last me nstrual period of 02/11/2023 Sex and Gender Information Value Date Recorded Sex Assigned at Female 05/09/2023 8:51 PM DAIRY CHEMIST Gender Identity Female 05/09/2023 8:51 PM DAIRY CHEMIST Sexual Orientation Straight 05/09/2023 8: 51 PM DAIRY CHEMIST Last Filed Vital Signs Vital Sign Reading Time Taken Comments Blood Pressure 113/65 05/12/2023 2:23 PM DAIRY CHEMIST Pulse 75 05/12/2023 2:23 PM DAIRY CHEMIST Temperature 36.7 ??C (98.1 ??F) 05/12/2023 2:23 PM CS T Respiratory Rate 18 10/22/2016 1:46 PM CDT Oxygen Saturation 98% 05/12/2023 2:23 PM DAIRY CHEMIST Inhaled Oxygen Concentration - - Weight 65.6 kg (144 lb 10 oz) 05/12/2023 2:23 PM DAIRY CHEMIST Height 164 cm (5' 4.57) 11/21/2016 9:20 [...] season) 2022 Depression Screening (Annual PHQ-2) 03/24/2023 Influenza Vaccine (#1) 2023 , 12/27/2021, 03/20/2021, Additional history exists DTaP,Tdap,and Td Vaccines (3 - Td or Tdap) 03/20/2031 03/20/2021, 09/01/2006 Pneumococcal vaccine (0-64 years) Aged Out No longer eligible based on patient's age to complete this topic RSV vaccine - (32-36 weeks) or 60+ years (No Doses Required) Completed Procedures Procedure Name Priority Date/Time Associated Diagnosis Comments PATHOLOGY DENTAL SALES REPRESENTATIVE CYTOLOGY Routine 10/21/2016 12:00 AM CDT from Last 3 Months or Most Recently Relevant to Health Maintenance Results * Pathology DENTAL SALES REPRESENTATIVE Cytology (10/21/2016 12:00 AM CDT) 10/21/2016 Narrative [facility] - 10/25/2016 11:59 AM CDT [facility] [place] [address] [facility] [address] [place] [address] ??[phone] Patient Name: ELMA TAYLOR Collected: 10/21/2016 Address: City/State/Zip: [address] [place] [address] ??[id number] Received: Reported: 10/22/2016 10/25/2016 Soc. Sec. #: ?/Age/Sex 1990 (Age: 26) ??F Physician(s): JAVON KANG MD Copy To: ? [facility] ??[phone] [facility] ??[address] CYTOPATHOLOGY DENTAL SALES REPRESENTATIVE REPORT FINAL CYTOLOGIC DIAGNOSIS Pap Smear VCE - ThinPrep: NEGATIVE FOR INTRAEPITHELIAL LESION OR MALIGNANCY REACTIVE/REPARATIVE CHANGES. ENDOCERVICAL CELLS/COMPONENT PRESENT. SATISFACTORY SPECIMEN FOR EVALUATION. ??This specimen required a physician interpretation under CLIA 1987 ?? Electronically Signed Out By [facility]/10/25/2016 RENUKA CHOUDHARY M.D. AJ Wawrzynaik RONALD([facility]) The Pap test is a screening [...] Kang M.D. LAB PAP COPATH OR DERABLES [facility] LAB from Last 3 Months or Most Recently Relevant to Health Maintenance Care Teams General Farm Hand Relationship Specialty Start Date End Date Gertrude Kang M.D. [address] [place] [phone] PCP - General 09/20/16
--- OUTSIDE RECORDS SUMMARY | 2023-10-21 11:59 | XMS_ITS | Referral Summary ---
Author Organization [facility] Address [address] [place] [address] Care Team Providers Care Poly Packer And Heat Sealer Name Role Phone Gertrude Kang M.D. Primary Care Provider [phone] Source Comments Patient records contain information from all sites at [facility]. For routine questions regarding patient records, call [phone] during business hours, M-F 8:00 AM - 5:00 PM Central Time. Record requests for emergency care only can be directed to [phone] at any time.[facility] Allergies No known active allergies Medications Medication Sig Dispensed Refills Start Date End Date Status kxlezji-El-nboz-FA 27 mg iron- 1 mg tablet Take [...] oz pur e alcohol) 2 a week [facility] Utilities Answer Date Recorded In the past 12 months has e [employer], gas, oil, or water [employer] threatened to shut off services in your [...] money to buy more. Never true 05/09/19 Within the past 12 months, t he [...] Sex Assigned at Female 05/09/2023 8:51 PM TABLE TOP TILE SETTER Gender Identity Female 05/09/2023 8:51 PM TABLE TOP TILE SETTER Sexual Orientation Straight 05/09/2023 8: 51 PM TABLE TOP TILE SETTER Last Filed Vital Signs Vital Sign Reading Time Taken Comments Blood Pressure 113/65 05/12/2023 2:23 PM TABLE TOP TILE SETTER Pulse 75 05/12/2023 2:23 PM TABLE TOP TILE SETTER Temperature 36.7 ??C (98.1 ??F) 05/12/2023 2:23 PM CS T Respiratory Rate 18 10/22/2016 1:46 PM CDT Oxygen Saturation 98% 05/12/2023 2:23 PM TABLE TOP TILE SETTER Inhaled Oxygen Concentration - - Weight 65.6 kg (144 lb 10 oz) 05/12/2023 2:23 PM TABLE TOP TILE SETTER Height 164 cm (5' 4.57) 11/21/2016 9:20 AM CDT Body Mass Index 24.39 11/21/2016 9:20 AM CDT Plan of Treatment Not on file Procedures Procedure Name Priority Date/Time Associated Diagnosis Comments PATHOLOGY DIRECTOR OF CATH LAB CYTOLOGY Routine 10/21/2016 12:00 AM CDT from Last 3 Months or Most Recently Relevant to Health Maintenance Results * Pathology DIRECTOR OF CATH LAB Cytology (10/21/2016 12:00 AM CDT) 10/21/2016 Narrative [facility] - 10/25/2016 11:59 AM CDT [facility] in [address] [place], [place] ??[phone] Patient Name: ELMA TAYLOR CASSIDY Collected: 10/21/2016 Address: City/State/Zip: [address] [place] [address] ??[phone] Received: Reported: 10/22/2016 10/25/2016 Soc. Sec. #: ?/Age/Sex 1990 (Age: 26) ??F Physician(s): JAVON KANG MD Copy To: ? [facility] ??[id number] [address] [facility], ??[place] ??[address] CYTOPATHOLOGY DIRECTOR OF CATH LAB REPORT FINAL CYTOLOGIC DIAGNOSIS Pap Smear VCE [...] Kang M.D. LAB PAP COPATH OR DERABLES [facility] from Last 3 Months or Most Recently Relevant to Health Maintenance Care Teams Poly Packer And Heat Sealer Relationship Specialty Start Date End Date Gertrude Kang M.D. NPRohit: [phone] [address] [place] [phone] PCP - General 09/20/16
--- OUTSIDE RECORDS SUMMARY | 2023-10-21 11:59 | XMS_ITS ---
Author Organization [facility] Address [address] [place] [address] Care Team Providers Care Copy Worker Name Role Phone Unavailable Unavailable Unavailable Surgery Details Not on file Complications Check Surgery Details section. Procedure Estimated Blood Loss Check Surgery Details section. Procedure Findings Check Surgery Details section. Procedure Specimens Taken Check Surgery Details section.
--- NOTE | 2023-10-21 12:15 | CRLHL7_ITS ---
For Patients: As a result of the Century Cures Act, medical imaging exams and procedure reports are released immediately into your electronic medical record. You may view this report before your referring provider. If you have questions, please contact your health care provider. INDICATION: Third trimester scan, evaluate growth. COMPARISON: 08/25/2023 TECHNIQUE: Real time alcantara scale imaging of the fetus was performed as well as color Doppler and spectral Doppler analysis of the umbilical artery. FINDINGS: Sonographic imaging demonstrates a single living intrauterine gestation. Fetus demonstrates a regular cardiac rate of 133 beats per minute. Fetus has a vertex position. The placenta lies anteriorly. Amniotic fluid volume appears normal and there is a single deepest vertical pocket: 7.3 cm. The estimated weight is 3218gm which lies at the 87th %. On the prior OB ultrasound exam dated 08/25/2023 the estimated weight was at the 82nd%. BPD 84th percentile. HC is 85th percentile. AC 95th percentile. FL 49th percentile. The HC/AC ratio measures 1.00 range (0.91-1.05). IMPRESSION: Sonographic gestational age 37 weeks 3 days and a sonographic due date 11/08/2023. Sonographic age 10 days ahead of the clinical age. Estimated weight 87th percentile. Abdominal circumference is 95th percentile. Dictated by Erwin Lamas MD @ 10/23/2023 6:57:59 AM (Electronically Signed)
== END 2023-10-21 11:57 | disposition home or self-care (01) ==
PROVIDERS: PCP Family Medicine; Visit Provider Obstetrics & Gynecology
DX: Z34.93 Encounter for supervision of normal pregnancy, unspecified, third trimester (principal); Z3A.37 37 weeks gestation of pregnancy
CPT/HCPCS: 76816; 87081; 87653

== ENCOUNTER 2023-11-01 15:01 | Inpatient (IN) | payer OTHER, SELFPAY ==
[2023-11-01] VITALS (15 sets, daily range): BP systolic 74–119; BP diastolic 46–74; PULSE 58–80; RESP 16–20; TEMP 36.6; O2SAT 99–100
--- OUTSIDE RECORDS SUMMARY | 2023-11-01 15:01 | XMS_ITS ---
Author Organization [facility] Address [address] [place] [address] Care Team Providers Care Verification Clerk Name Role Phone Unavailable Unavailable Unavailable Surgery Details Not on file Complications Check Surgery Details section. Procedure Estimated Blood Loss Check Surgery Details section. Procedure Findings Check Surgery Details section. Procedure Specimens Taken Check Surgery Details section.
--- OUTSIDE RECORDS SUMMARY | 2023-11-01 15:01 | XMS_ITS | Referral Summary ---
Author Organization [facility] Address [address] [place] [address] Care Team Providers Care Patch Finisher Name Role Phone Gertrude Kang M.D. Primary Care Provider [phone] Source Comments Patient records contain information from all sites at [facility]. For routine questions regarding patient records, call [phone] during business hours, M-F 8:00 AM - 5:00 PM Central Time. Record requests for emergency care only can be directed to [phone] at any time.[facility] Allergies No known active allergies Medications Medication Sig Dispensed Refills Start Date End Date Status [id number]-Hg-qxyu-FA 27 mg iron- 1 mg tablet Take [...] oz pur e alcohol) 2 a week [facility] Utilities Answer Date Recorded In the past 12 months has e [employer], gas, oil, or water [employer] threatened to shut off services in your [...] Sex Assigned at Female 05/09/2023 8:51 PM MANAGER PERSONNEL SELECTION Gender Identity Female 05/09/2023 8:51 PM MANAGER PERSONNEL SELECTION Sexual Orientation Straight 05/09/2023 8: 51 PM MANAGER PERSONNEL SELECTION Last Filed Vital Signs Vital Sign Reading Time Taken Comments Blood Pressure 113/65 05/12/2023 2:23 PM MANAGER PERSONNEL SELECTION Pulse 75 05/12/2023 2:23 PM MANAGER PERSONNEL SELECTION Temperature 36.7 ??C (98.1 ??F) 05/12/2023 2:23 PM CS T Respiratory Rate 18 10/22/2016 1:46 PM CDT Oxygen Saturation 98% 05/12/2023 2:23 PM MANAGER PERSONNEL SELECTION Inhaled Oxygen Concentration - - Weight 65.6 kg (144 lb 10 oz) 05/12/2023 2:23 PM MANAGER PERSONNEL SELECTION Height 164 cm (5' 4.57) 11/21/2016 9:20 AM CDT Body Mass Index 24.39 11/21/2016 9:20 AM CDT Plan of Treatment Not on file Procedures Procedure Name Priority Date/Time Associated Diagnosis Comments PATHOLOGY SYSTEM SUPPORT ADMINISTRATOR CYTOLOGY Routine 10/21/2016 12:00 AM CDT from Last 3 Months or Most Recently Relevant to Health Maintenance Results * Pathology SYSTEM SUPPORT ADMINISTRATOR Cytology (10/21/2016 12:00 AM CDT) 10/21/2016 Narrative [facility] - 10/25/2016 11:59 AM CDT [facility] in [address] [place], [place] ??[phone] Patient Name: ELMA TAYLOR CASSIDY Collected: 10/21/2016 Address: City/State/Zip: [address] [place] [address] ??[phone] Received: Reported: 10/22/2016 10/25/2016 Soc. Sec. #: ?/Age/Sex 1990 (Age: 26) ??F Physician(s): JAVON KANG MD Copy To: ? [facility] ??[id number] [address] [facility], ??[place] ??[address] CYTOPATHOLOGY SYSTEM SUPPORT ADMINISTRATOR REPORT FINAL CYTOLOGIC DIAGNOSIS Pap Smear VCE - ThinPrep: NEGATIVE FOR INTRAEPITHELIAL LESION OR MALIGNANCY REACTIVE/REPARATIVE CHANGES. ENDOCERVICAL CELLS/COMPONENT PRESENT. SATISFACTORY SPECIMEN FOR EVALUATION. ??This specimen required a physician interpretation under CLIA 1987 ?? Electronically Signed Out By [facility]/10/25/2016 RENUKA CHOUDHARY M.D. JESSICA CARDENAS(ASCP) The [...] Recently Relevant to Health Maintenance Care Teams Patch Finisher Relationship Specialty Start Date End Date Gertrude Kang M.D. NPRohit: [phone] [address] [place] [phone] PCP - General 09/20/16
--- OUTSIDE RECORDS SUMMARY | 2023-11-01 15:01 | XMS_ITS | Clinical Summary ---
Author Organization [facility] Address [address] [place] [address] Care Team Providers Care Graphite Mill Operator Name Role Phone Gertrude Kang M.D. Primary Care Provider [phone] Source Comments Patient records contain information from all sites at [facility]. For routine questions regarding patient records, call [phone] during business hours, M-F 8:00 AM - 5:00 PM Central Time. Record requests for emergency care only can be directed to [phone] at any time.[facility] Allergies No known active allergies Medications Medication Sig Dispensed Refills Start Date End Date Status [id number]-Wi-ambl-FA 27 mg iron- 1 mg tablet Take [...] oz pur e alcohol) 2 a week [facility] [employer] Answer Date Recorded In the past 12 months has e [employer], gas, oil, or water [employer] threatened to shut off services in your [...] Answer Date Recorded Employment status Unemployed/not in [employer] paid workforce and NOT seeking employment 05/09/2023 Housing Stability Answer Date Recorded What is your living situation today? I have a [facility] place to live 05/09/2023 Education Answer Date Recorded What is the highest level of school you have completed or the highest degree you have received? Bachelor's degree (e.g., BA, AB, BS) 04/11/2023 Estimated Date of Delivery Comme nts Yes 11/18/2023 Based on last me nstrual period of 02/11/2023 Sex and Gender Information Value Date Recorded Sex Assigned at Female 05/09/2023 8:51 PM NUCLEAR LICENSING ENGINEER Gender Identity Female 05/09/2023 8:51 PM NUCLEAR LICENSING ENGINEER Sexual Orientation Straight 05/09/2023 8: 51 PM NUCLEAR LICENSING ENGINEER Last Filed Vital Signs Vital Sign Reading Time Taken Comments Blood Pressure 113/65 05/12/2023 2:23 PM NUCLEAR LICENSING ENGINEER Pulse 75 05/12/2023 2:23 PM NUCLEAR LICENSING ENGINEER Temperature 36.7 ??C (98.1 ??F) 05/12/2023 2:23 PM CS T Respiratory Rate 18 10/22/2016 1:46 PM CDT Oxygen Saturation 98% 05/12/2023 2:23 PM NUCLEAR LICENSING ENGINEER Inhaled Oxygen Concentration - - Weight 65.6 kg (144 lb 10 oz) 05/12/2023 2:23 PM NUCLEAR LICENSING ENGINEER Height 164 cm (5' 4.57) 11/21/2016 9:20 [...] Name Priority Date/Time Associated Diagnosis Comments PATHOLOGY TUMBLING AND ROLLING SUPERVISOR CYTOLOGY Routine 10/21/2016 12:00 AM CDT from Last 3 Months or Most Recently Relevant to Health Maintenance Results * Pathology TUMBLING AND ROLLING SUPERVISOR Cytology (10/21/2016 12:00 AM CDT) 10/21/2016 Narrative [facility] - 10/25/2016 11:[address] [facility] in [place] [address] [facility] [address] [place] [address] ??[phone] Patient Name: ELMA TAYLOR Collected: 10/21/2016 Address: City/State/Zip: [address] [place] [address] ??[phone] Received: Reported: 10/22/2016 10/25/2016 Soc. Sec. #: ?/Age/Sex 1990 (Age: 26) ??F Physician(s): JAVON KANG MD Copy To: ? [facility] ??[id number] [address] [facility] ??[place] ??[address] CYTOPATHOLOGY TUMBLING AND ROLLING SUPERVISOR REPORT FINAL CYTOLOGIC DIAGNOSIS Pap Smear VCE - ThinPrep: NEGATIVE FOR INTRAEPITHELIAL LESION OR MALIGNANCY REACTIVE/REPARATIVE CHANGES. ENDOCERVICAL CELLS/COMPONENT PRESENT. SATISFACTORY SPECIMEN FOR EVALUATION. ??This specimen required a physician interpretation under CLIA 1987 ?? Electronically Signed Out By [facility]/10/25/2016 RENUKA CHOUDHARY M.D. AJ Wawrzynaik RONALD([facility]) The Pap test is a screening procedure [...] Kang M.D. LAB PAP COPATH OR DERABLES [facility] LAB from Last 3 Months or Most Recently Relevant to Health Maintenance Care Teams Graphite Mill Operator Relationship Specialty Start Date End Date Gertrude Kang M.D. [address] [place] [phone] PCP - General 09/20/16
[2023-11-01] MEDS: LACTATED RINGERS 1000 ML 1,000 ML 1200 ML IV ×3 (16:00→17:59)
[2023-11-01 16:17] LABS: Basophils Percent Auto 0.1 % (0.0-3.0); Eosinophils Percent Auto 0.2 % (0.0-7.0); Hematocrit 41.8 % (33.0-51.0); Hemoglobin* 14.1 gm/dL (12.0-16.0); Immature Granulocytes Pct Auto 0.6 %; Lymphocytes Percent Auto 7.8 % (20-44); Mean Corpuscular HGB Conc 34 gm/dL (32-36); Mean Corpuscular Hemoglobin 31 pg (26-34); Mean Corpuscular Volume 91 fL (80-100); Monocytes Percent Auto 3.3 % (0.0-11.0); Platelet Count* 153 K/uL (140-440); RDW Coefficient of Variation % 13.2 % (11.5-15.5); Red Blood Count 4.62 m/uL (4.00-5.20); White Blood Count* 15.07 K/uL (4.50-11.00)
[2023-11-01 16:18] LABS: Slide Review Reflex No
--- NOTE | 2023-11-01 16:52 | P.LDBA_ITS ---
Subjective History of Present Illness Date Seen: 11/01/23 Narrative: Patient is being admitted to Labor and Delivery in labor for VTOLAC. She is a 33 year old at 37 4/7 weeks gestation. Her full history and physical was dictated by Dr. HANKINS on 10/28/23. Please see this for details. Patient arrived at labor and delivery experiencing painful and frequent uterine contractions. Upon evaluation she was found 10cm dilated and SROM with cervical check at triage room. Patient was taken to delivery room GARRY. Specific Issues/Plans G 2 P 1001 H&P by [facility] on 10/28/23 # History of delivery due to arrest of descent. 8lb 13oz. -Desires . -Informed consent initially discussed 07/30/23 given to patient to review. 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 x f/u repeat level on 06/26, pt to report this to neurologist for management:18, neurology recommends to continue current dose. -MFM consult 05/12/23: After the 1st trimester at 14 weeks can reduce folic acid to 1 mg daily. Continue to follow with neurology. Keppra levels should be checked at least every trimester, sometimes monthly depending on stability. Neurology to adjust doses accordingly. She will need to reduce her dosing after delivery. Anatomy ultrasound at 18-20 weeks. [place] did NOT recommend a level 2 US. [x ] f/u radiology read on FAS - No anomalies -Assess growth around 28 and 36 weeks. surveillance for usual indications if needed. - Question regarding Tdap vaccination: The consent form asked the question about history of seizure disorder. I called Dr. Durham's office at [facility] and expect an answer prior to her next visit: 09/11/23 Alvina ([phone]) from [facility] returned phone call and states it is safe for Tdap vaccine to be given. # Will be due for Pap smear. # Depression and anxiety. - Stable on Sertraline 150mg daily. # Hep B antibody negative. 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 Growth US results: 28 wks: EFW 82%, SDP: 6.8cm, normal growth, vertex 36 weeks: Vertex, single deepest pocket of amniotic fluid 7.3 cm, BPD: 84 per centile, HC: 85 percentile, AC: 95 percentile, SL: 49th percentile. EFW: 87th percentile. Flu: Completed 04-04-23 Covid: Recommended. Declined. Tdap given on 10/21/23 OB - Problem Based A/P Additional Plan (1) Status post primary low transverse section: Status: Acute (2) Failed attempted vaginal after previous delivery: Status: Acute (3) Depression: Problem details: Since last Status: Chronic (4) Mariia vu seizure disorder: Problem details: Did see neurologist, Dr. Durham : normal EEG, normal brain MRI. On [facility] Status: Suspected Plan Patient arrived at triage fully dilated and SROMed with cervical check. Patient was instructed to push with contractions and NST showing recurrent variable decelerations. It was hard to establish IV line but after fluid bolus and position changes heart rate has remained with normal baseline, moderate variability and accelerations noted. She has been pushing for about 1 hour at this moment and no descent past +1 has been noted. Discussion of status with patient and we had already discussed in clinic that she did not wanted to push for so many hours as she did with her first baby. Discussed the possibility to proceed with delivery now vs possible epidural placement and assess if pushing becomes more effective with better management of her pain. Patient was given time to discuss with family members and she would like to proceed with delivery now. Informed consent reviewed with patient, discussed risks of surgery, bleeding and needing a blood transfusion, infection, damage to nearby organs, blood clots. We will plan to proceed with repeat delivery at this time. OB Exam Physical Exam Vital signs: Pulse BP 74 105/60 11/01/23 15:22 11/01/23 15:22 Detailed Labor and Delivery Exam Patient Gravid: Yes Dilation (cm): 10 Effacement (%): 100 Tachysystole: No Contraction intensity: Strong/Firm Fetus (Single) Station: +1 Amniotic Membrane Status: SROM Amniotic Membrane Fluid Description: Clear Heart Rate Baseline: 140 Monitor Accelerations: Present Monitor Decelerations: Variable Gas Leak Inspector Variability: Moderate (6-25)
[2023-11-01] MEDS: AZITHROMYCIN 500 MG in 0.9 % SODIUM CHLORIDE 250 ml 250 ML 255 MG IVPB (16:59)
[2023-11-01] MEDS: CEFAZOLIN 2 GM INJ IVP (17:25)
[2023-11-01] MEDS: miSOPROStoL 800 MCG/4 TABLET PR (17:55)
--- NOTE | 2023-11-01 18:47 | P.OBPRC_ITS ---
Procedure Date of procedure: 11/01/23 Pre-op diagnosis: Failed vaginal trial of labor after section, arrest in the second stage of labor Post-op diagnosis: same (Uterine atony) Procedure Done: Global Will [facility] bill your pro fee for this procedure?: Yes Blood Loss Measurement Type: QBL (769mL) Bakri Used: No IV fluids (mL): 1,600 Urine Output (mL): 250 Urine Output Comment: Clear at end of procedure Surgeon: Elodia Bustillos MD Anesthesia Type: Spinal Findings: FINDINGS: Live-born male , vertex ROT, deeply engaged in the pelvis, Apgars 1/4/8 at 1,5 and 10 minutes respectively. weight 7 lb 12 oz. Dense adhesion of fascia and rectus muscles.Bladder peritoneum adhesion to the lower uterine segment. Hysterotomy extension to the right lower uterine segment of 2cm. Procedure Name: Repeat low transverse section Procedure Description: PROCEDURE: After obtaining informed consent, the patient was taken to the operating room where spinal anesthesia was obtained and found to be adequate. She was prepared and draped in the normal sterile fashion in the dorsal supine position with a leftward tilt. A Pfannenstiel skin incision was made with a scalpel along the line of the patient's previous Pfannenstiel scar. This incision was carried down to the underlying layer of fascia with the scalpel and Bovie. The fascia was incised in the midline and the incision extended laterally. The superior and inferior aspects of the fascial incision were grasped with Marissa clamps, elevated and the underlying rectus muscles dissected off sharply and with Childers scissors. The rectus muscles were then in the midline. Peritoneum entered bluntly. The Deepak O retractor was then placed into the incision. Bladder flap was completed utilizing Metzembaum scissors. The lower uterine segment was then incised in a transverse fashion with the scalpel. Upon entry into the uterus, minimal amount of amniotic fluid was noted. The uterine incision was extended cephalo caudally with blunt finger fractionation. Left shoulder identified at level of incision and inability to pass my entire hand to lift the head to incision. I asked nursing for a manual vaginal lift of the head. At this time I was able to lift the head and occiput to incision, afterwards with fundal pressure the rest of the body was delivered atraumatically. One loose loop of umbilical cord around body was reduced. The nose and mouth were suctioned with the bulb suction. The cord was doubly clamped and cut, after 30 seconds of delayed cord clamping and the infant was handed off the field for evaluation. Umbilical cord was clamped for collection of blood gases. The placenta was delivered spontaneously with umbilical cord traction and fundal massage. The uterus was cleared of all clots and debris. Uterine atony identified and treated with 1 dose of TXA 1g, IV Oxytocin, 800mcg of rectal Cytotec and 1 dose of IM Methergine. The uterine incision was reapproximated in a running locking fashion with a 0 Vicryl suture. This included hysterotomy extension on the right side. There was a hematoma noted at the site of hysterotomy extension and the uterus was removed from the abdomen for further inspection. A 2nd layer of the same suture was used to imbricate in horizontal fashion, this released the hematoma and interlocking sutures secured hemostasis. The broad ligament was inspected bilaterally and this was found intact. Hemostasis again secured. The gutters were inspected and cleared of blood clots. All instruments and retractors were removed. The anterior peritoneum was reapproximated in a running fashion with a 3-0 Vicryl suture. The subfascial tissues were carefully inspected and hemostasis assured. The fascia was reapproximated in a running fashion with a looped 0 PDS suture. The subcutaneous tissues were copiously irrigated. Hemostasis was assured. The subcutaneous fat layer was reapproximated with interrupted sutures of 3-0 Vicryl. The skin was closed in a subcuticular fashion with 4-0 Monocryl. LiquiBand and dressing were applied. The patient tolerated the procedure well. Sponge, lap, needle, and instrument counts were reported as correct x2. The patient was taken to the recovery room, awake, and in stable condition. She did receive 2 grams of IV Ancef and 500mg of IV Azithromycin preoperatively. Complications: None Pathology: specimen obtained, sent to pathology (Placenta) Surgery Debrief Performed: Yes Condition: stable Disposition: floor
[2023-11-01] MEDS: KETOROLAC 30 MG/ML inj IVP (18:50)
--- NOTE | 2023-11-01 19:17 | P.ANES_ITS ---
Anesthesia Charges Start Date/Time Anesthesia Start Date: 11/01/23 Anesthesia Start Time: 17:12 Stop Date/Time Anesthesia Stop Date: 11/01/23 Anesthesia Stop Time: 19:06 Summary Emergency: PROFILE SHAPER OPERATOR
--- NOTE | 2023-11-01 19:17 | W.PM.NB ---
Nerve Block Nerve Block Time Seen by Provider: 18:55 Date Seen: 11/01/23 Type of block requested by surgeon for post-operative analgesia: TAP Side: bilateral Time out performed: Yes Verification of patient name: Yes Verification of date of : Yes Site marking: not applicable Name of person performing procedure: Saurav Oconnor Continuous monitoring Was continuous monitoring of O2 sat, B/P, hearing aid technician, recorded every 15 minutes?: Yes Procedure Checklist: sterile prep, needles and gloves Ultrasound guided. Images saved: Yes Medications given in 5ml increments after negative aspiration: Marcaine %: 0.25 mL: 30 Needle gauge: 20 and Exparel mL: 10 Needle gauge: 20 Patient tolerated procedure well: Yes Block Charges Block Charge (with Pro Fee): TAP Bilateral Use of Ultrasound Machine for Block: Yes- US Guidance/pain block
[2023-11-01] MEDS: ACETAMINOPHEN 500 MG TABLET 1000 MG PO (21:05)
[2023-11-01] MEDS: levETIRAcetam 500 MG TABLET PO (22:30)
[2023-11-02] VITALS (24 sets, daily range): BP systolic 91–102; BP diastolic 54–65; PULSE 73–89; RESP 16–22; TEMP 36.6–36.9; O2SAT 97–100
[2023-11-02] MEDS: KETOROLAC 30 MG/ML inj IVP ×4 (00:44→18:54)
[2023-11-02] MEDS: ACETAMINOPHEN 500 MG TABLET 1000 MG PO ×3 (04:02→16:08)
[2023-11-02 06:32] LABS: Hemoglobin* 11.4 gm/dL (12.0-16.0)
[2023-11-02] MEDS: DOCUSATE SODIUM 100 MG CAPSULE PO (08:37)
[2023-11-02] MEDS: SERTRALINE 100 MG TABLET 150 MG PO (08:37)
[2023-11-02] MEDS: levETIRAcetam 500 MG TABLET PO ×2 (08:37→20:43)
--- NOTE | 2023-11-02 10:12 | PM.OBPNVD1 ---
OB - PN:Subj Subjective Date Seen: 11/02/23 Narrative: Ashley is a 33 y.o. who was admitted to L & D for VTOLAC, she was found complete upon admission but after pushing for 1 hour no descent noted and patient opted to move to a repeat delivery at that time. ?She had an uncomplicated .?The patient feels well. ?The pain is well controlled with current medications. ?She has no new complaints. ?She is breast feeding and reports things are going well.? the patient has done well.? Vitals have been stable.? She has remained afebrile.? Has a good appetite, is tolerating a general diet. Martin catheter still in place, normal output and clear urine. She has not been able to ambulate much, but is tolerating sitting w/o difficulty. Has Small amount of rubra lochia. OB - PN: Obj Exam Physical Exam: Vital signs: Temp Pulse Resp BP Pulse Ox O2 Del Method 98.2 F 83 16 102/60 97 Room Air 11/02/23 08:39 11/02/23 08:39 11/02/23 08:39 11/02/23 08:39 11/02/23 08:39 11/02/23 08:39 Narrative: VITAL SIGNS: As noted above. GENERAL APPEARANCE: Alert, cooperative female in no acute distress. MOOD & AFFECT: Normal. HEART: Regular rate and rhythm without significant murmurs. LUNGS: Lungs are clear to auscultation bilaterally. No crackles, wheezes, or rhonchi. ABDOMEN: Soft, mildly distended, appropriately tender. Well contracted uterus. Positive bowel sounds. : Normal pp lochia. EXTREMITIES: Nonedematous. Well perfused. Nontender. NEURO: Intact. Urinary Catheter Management: Urethral: Cath placed during this visit: yes Urethral indwelling: Yes Reason for continuing: surgical procedure Insertion date: 11/01/23 Insertion time: 17:28 OB - PN: Obj Data Labs Labs: Laboratory Results - last 24 hr 11/01/23 11/02/23 16:10 06:12 WBC 15.07 H RBC 4.62 Hgb 14.1 11.4 L Hct 41.8 MCV 91 MCH 31 MCHC 34 RDW Coeff of Juan Alberto 13.2 Plt Count 153 Neut % (Auto) 88.0 H Lymph % (Auto) 7.8 L [place] % (Auto) 3.3 Eos % (Auto) 0.2 Baso % (Auto) 0.1 Neut # (Auto) 13.30 H Lymph # (Auto) 1.20 [place] # (Auto) 0.50 Eos # (Auto) 0.00 Baso # (Auto) 0.00 Abs Immat Gran (auto) 0.10 Imm/Tot Granulo (auto) 0.6 Blood Type O Positive Antibody Screen NEGATIVE OB - PN: A/P Delivery Assessment and Plan (1) Failed attempted vaginal after previous delivery: Status: Acute (2) Status post repeat low transverse section: Status: Acute (3) Depression: Problem details: Since last Status: Chronic Assessment and Plan: Plan to continue Sertraline, patient currently states to be feeling much better compared to her first delivery. (4) Anxiety disorder: Status: Chronic (5) Mariia vu seizure disorder: Problem details: Did see neurologist, Dr. Durham : normal EEG, normal brain MRI. On Keppra Status: Suspected Assessment and Plan: Keppra dose decreased to 500mg BID as previously recommended by neurologist pp. Plan day: 1 Plan: routine care
[2023-11-03] MEDS: ACETAMINOPHEN 500 MG TABLET 1000 MG PO ×3 (00:17→12:59)
[2023-11-03] MEDS: KETOROLAC 30 MG/ML inj IVP (01:07)
[2023-11-03 05:16] VITALS: BP 101/63; PULSE 67; RESP 16; TEMP 36.5; O2SAT 98
[2023-11-03] MEDS: SERTRALINE 100 MG TABLET 150 MG PO (08:35)
[2023-11-03] MEDS: IBUPROFEN 600 MG TABLET PO (08:35)
[2023-11-03] MEDS: levETIRAcetam 500 MG TABLET PO (08:35)
[2023-11-03] MEDS: DOCUSATE SODIUM 100 MG CAPSULE PO (08:36)
[2023-11-03 08:38] VITALS: BP 105/71; PULSE 67; RESP 16; TEMP 36.6; O2SAT 98
--- NOTE | 2023-11-03 09:35 | P.DS_ITS ---
DS: Providers Provider Date Seen: 11/03/23 Date of admission: 11/01/23 15:01 Primary care physician: Cammy Andrews MD Admitting Clinician: Alka Bustillos MD Attending Physician on discharge: Yesica Locke CNM DS: Diagnosis Discharge Diagnosis (1) Status post repeat low transverse section: Status: Acute (2) care and examination immediately after delivery: Status: Acute (3) Lactating mother: Status: Acute (4) Anxiety disorder: Status: Chronic (5) Depression: Status: Chronic Problem details: Since last Exam Narrative: Exam Narrative: GENERAL APPEARANCE:? normal affect, alert, no distress MOOD:? appropriate CHEST:? clear to auscultation HEART:? regular rate and rhythm ABDOMEN:? soft, non-tender the uterine fundus is at Umbilicus, Midline and is appropriate for the stage of recovery. EXTREMITIES:? normal and no edema Incision: Dressing in place, patient desires to removed in shower. Dressing is clean, dry, and intact. Const: Vital Signs, click to edit/add: Vital Signs - 24 hr 11/02/23 10:20 11/02/23 11:20 11/02/23 12:20 Temperature Pulse Rate [Pulse Oximeter] Respiratory Rate 16 16 16 Blood Pressure [Le ft Arm] Blood Pressure [Ri ght Arm] Pulse Oximetry Oxygen Delivery Me thod 11/02/23 12:58 11/02/23 13:20 11/02/23 14:20 Temperature 98.2 F Pulse Rate [Pulse Oximeter] 89 Respiratory Rate 16 16 16 Blood Pressure [Le ft Arm] Blood Pressure [Ri ght Arm] 100/63 Pulse Oximetry Oxygen Delivery Me thod 11/02/23 15:20 11/02/23 16:20 11/02/23 17:20 Temperature Pulse Rate [Pulse Oximeter] Respiratory Rate 16 16 16 Blood Pressure [Le ft Arm] Blood Pressure [Ri ght Arm] Pulse Oximetry Oxygen Delivery Me thod 11/02/23 18:20 11/02/23 20:45 11/03/23 01:49 Temperature 97.9 F Pulse Rate [Pulse Oximeter] 85 Respiratory Rate 16 16 Blood Pressure [Le ft Arm] 102/65 Blood Pressure [Ri ght Arm] Pulse Oximetry 98 Oxygen Delivery Me thod Room Air Room Air 11/03/23 05:16 08/12/24 08:38 Temperature 97.7 F 97.8 F Pulse Rate [Pulse Oximeter] 67 67 Respiratory Rate 16 16 Blood Pressure [Le ft Arm] 101/63 Blood Pressure [Ri ght Arm] 105/71 Pulse Oximetry 98 98 Oxygen Delivery Me thod Room Air Room Air OB - DS: Summary Hospital Course Hospital Course: Ashley is a 33 y.o. G 2 P 2 who was admitted to L & D for spontaneous onset of labor. ?She had a repeat section that was uncomplicated. The patient feels well. ?The pain is well controlled with current medications. ?She has no new complaints. ?She is breast feeding and reports things are going well. the patient has done well.? Vitals have been stable.? She has remained afebrile.? Has a good appetite, is tolerating a general diet. ?She is voiding without difficulty.? She is passing gas and has not had a bowel movement.? She is ambulating and denies any dizziness.? Has small amount of rubra lochia. Problems: n/a plan: Discharge home with baby. Follow up in 2 weeks and 6 weeks. , may see if needed Hgb 11.4. Peripartum Data Infant delivery method: Repeat Section Procedures: Procedures Operation Date: 11/01/23 17:30 Actual Procedure Side Surgeon p Repeat Low Transverse Section Alak Bustillos MD complications: none [place] Gender: Male Infant Discharge Plan: Home Status at Discharge Functional status at discharge: independent ambulation Overall status at discharge: patient is progressing back to baseline Time Spent with Patient Time attestation: Total time spent providing and/or coordinating discharge services: Discharge Plan Discharge Disposition: Home, Self-Care Date of Admission: 11/01/23 15:01 Attending Provider on Discharge: Yesica Locke Primary Care Provider: Cammy Andrews Condition: Stable Anticipated Discharge Date/Time: 11/03/23 12:00 Discharge Medications: New acetaminophen 500 mg Tablet 1,000 mg PO Q6H PRN (Reason: Pain) Qty: 0 0RF docusate sodium 100 mg Capsule 100 mg PO DAILY Qty: 90 0RF ibuprofen 600 mg Tablet 600 mg PO Q6H PRN (Reason: Pain) Qty: 60 0RF oxycodone 5 mg Tablet 5 - 10 mg PO Q4H PRN (Reason: Pain) Qty: 15 0RF Continued Multi-DHA(with vit K) 27 mg iron-800 mcg-260 mg capsule PO folic acid 1 mg tablet 1 mg PO QDAY Fish Oil 360-1,200 mg capsule,delayed release(DR/EC) 1 cap PO QDAY levetiracetam 500 mg tablet 750 mg PO BID magnesium citrate 100 mg tablet 200 mg PO QDAY sertraline 100 mg tablet 150 mg PO QDAY Qty: 135 1RF Discharge Orders: Discharge Order (Routine); Ordered 11/03/23 Ordered By: Yesica Locke Patient Education: OB Over the Counter Medication Information, * *OB Vaginal/Breast Feeding Additional Instructions: Discharge instructions were reviewed with the patient including signs and symptoms of infection and home going medications Lifting Restrictions: 20 pounds for 6 weeks No not submerge incision under water X 2 weeks? Nothing vaginally for 6 weeks: no tampons or intercourse Do not drive while taking narcotic pain medication(s) Off Work or School for 8 weeks 2-week visit: incision check, discuss infant feeding concerns, review control options and screen for anxiety/depression. 6-week visit for an annual exam. consultation services are available to all mothers and babies for the first year after delivery.? To make an appointment, please call [phone]. Activity Level: Activity as Tolerated Discharge Diet: Regular Follow Up Appointments: [facility] [Provider Group] Forms: [employer] Info Instructions
[2023-11-03] MEDS: OXYCODONE 5 MG TABLET PO (12:58)
[2023-11-04 23:21] LABS: Rapid Plasma Reagin (RPR) Non Reactive (Non Reactive)
== END 2023-11-03 13:48 | disposition home or self-care (01) | DRG 787 ==
LOC: OB OUT 15:46 → OB 15:46
PROVIDERS: Admitting Provider Obstetrics & Gynecology; PCP Family Medicine; Visit Provider Obstetrics & Gynecology
PROC: 10D00Z1 Extraction of Products of Conception, Low, Open Approach (ICD-10-PCS; CPT 59514; principal; 2023-11-01 17:15)
DX: O34.211 Maternal care for low transverse scar from previous cesarean delivery (principal); G40.209 Localization-related (focal) (partial) symptomatic epilepsy and epileptic syndromes with complex partial seizures, not intractable, without status epilepticus; O99.354 Diseases of the nervous system complicating childbirth; O66.41 Failed attempted vaginal birth after previous cesarean delivery; O32.4XX0 Maternal care for high head at term, not applicable or unspecified; G89.18 Other acute postprocedural pain; O62.2 Other uterine inertia; O90.2 Hematoma of obstetric wound; O99.344 Other mental disorders complicating childbirth; F41.9 Anxiety disorder, unspecified; F32.A Depression, unspecified; G43.909 Migraine, unspecified, not intractable, without status migrainosus; O99.892 Other specified diseases and conditions complicating childbirth; N73.6 Female pelvic peritoneal adhesions (postinfective); Z3A.37 37 weeks gestation of pregnancy; Z37.0 Single live birth
CPT/HCPCS: 01961; 36415; 64488; 76815; 76942; 85018; 85025; 86592; 86850; 86900; 86901; 88307; 99140; A9270; C9290; J0456; J0665; J0690; J1100; J1885; J2210; J2274; J2371; J2405; J2590; J3010; J7050; J7120

== ENCOUNTER 2023-12-16 14:28 | Outpatient (CLI) | payer OTHER, SELFPAY ==
[2023-12-19 08:24] LABS: HPV Source Cervical; HPV, High Risk by TMA Not Detected
[2023-12-29 14:36] LABS: PAP Reflex Billing Y; Pap Test Reviewed by Path Done
== END 2023-12-16 14:29 | disposition home or self-care (01) ==
PROVIDERS: PCP Family Medicine; Visit Provider Physician Assistant
DX: Z12.4 Encounter for screening for malignant neoplasm of cervix (principal)
CPT/HCPCS: 87624; 87625; 88141; 88142

== ENCOUNTER 2024-12-24 11:35 | Outpatient (CLI) | payer OTHER, SELFPAY | END 2024-12-24 11:36 | disposition home or self-care (01) | PROVIDERS: PCP Family Medicine; Visit Provider Physician Assistant | DX: F33.0 Major depressive disorder, recurrent, mild (principal) | CPT/HCPCS: 82306; 84443 ==